=== PATIENT | female | born 1960 | race Caucasian/White ===

== ENCOUNTER 2020-11-23 08:49 | Day surgery (SDC) | payer MEDICARE, OTHER ==
[~2020-11-23] VITALS: Ht 160 cm; Wt 113.4 kg
[2020-11-23] VITALS (9 sets, daily range): BP systolic 110–133; BP diastolic 52–76
[~2020-11-23 08:49] MED LIST: CATAPRES0.2 MG ORAL; Cyclopentolate 2% Opth Sol ONE; NOVOLOG100 UNIT/4 IABDOM; Phenylephrine 2.5% Op 2ml Soln ONE; SYNTHROID75 MCG ORAL; Tetracaine 0.5% Opth 4ml Soln LEFT EYE SCH; Tetracaine 0.5% Opth 4ml Soln ONE; Vigamox Opth Soln 3ml ONE
[2020-11-23] MEDS: Vigamox Opth Soln 3ml LEFT EYE SCH ×3 (09:05→09:30)
[2020-11-23] MEDS: Cyclopentolate 2% Opth Sol LEFT EYE SCH ×3 (09:05→09:30)
[2020-11-23] MEDS: Phenylephrine 2.5% Op 2ml Soln LEFT EYE SCH ×3 (09:05→09:30)
[2020-11-23] MEDS ORDERED: Lidocaine 4% Amp 5ml ONE (09:48)
[2020-11-23] MEDS ORDERED: Lidocaine 2% MPF 5ml Vial INJ ONE (09:48)
[2020-11-23] MEDS ORDERED: Lidocaine 1% MPF 10mg/ml 5ml ONE ×2 (09:48→10:59)
[2020-11-23] MEDS ORDERED: EPINEPHrine 1mg/1ml Amp ONE (09:48)
[2020-11-23] MEDS ORDERED: Maxitrol Opth Oint 3.5gm ONE (09:49)
[2020-11-23] MEDS ORDERED: BSS 500ml btl ONE (09:49)
[2020-11-23] MEDS ORDERED: Tobradex Opth Susp 2.5ml ONE (09:49)
[2020-11-23] MEDS ORDERED: BSS 15ml BTL ONE (09:49)
[2020-11-23] MEDS ORDERED: Acetylcholine Injection (OR) ONE (09:50)
[2020-11-23] MEDS ORDERED: Povidone-Iodine 5% opth solution ONE (09:50)
[2020-11-23] MEDS ORDERED: Bupivacaine 0.75% 30ml vial INJ ONE (09:50)
[2020-11-23] MEDS ORDERED: Tetracaine 0.5% Opth 4ml Soln ONE (09:50)
[2020-11-23] MEDS ORDERED: Healon Duet Dual Pack ONE (09:51)
--- NOTE | 2020-11-23 10:57 | Anethesia Preoperative Eval ---
Anesthesia Pre-op PMH/ROS General Date of Evaluation: Nov 23, 2020 Time of Evaluation: 10:52 Anesthesiologist: Austin ASA Score: ASA 3 Mallampati Score Class I : Soft palate, uvula, fauces, pillars visible Class II: Soft palate, uvula, fauces visible Class III: Soft palate, base of uvula visible Class IV: Only hard plate visible Mallampati Classification: Class II Surgeon: Andrew Diagnosis: Cat OS Surgical Procedure: Cat EXt IOL OS Anesthesia History: none Family History: no anesthesia problems Allergies: Coded Allergies: CODEINE (Verified Allergy, Unknown, 12/19/10) IBUPROFEN (Verified Allergy, Unknown, 12/19/10) MORPHINE (Verified Allergy, Unknown, 12/19/10) Uncoded Allergies: PAPER TAPE (Allergy, Intermediate, RASH, 11/18/20) Medications: see eMAR Patient NPO?: Yes Past Medical History Cardiovascular: Reports: HTN Neurologic/Psychiatric: Reports: depression/anxiety Endocrine: Reports: DM Other: obesity - BNI 46 Morbid Anesthesia Pre-op Phys. Exam Physician Exam Last Vital Signs Date Time Temp Pulse Resp B/P (MAP) Pulse Ox O2 Delivery O2 Flow Rate FiO2 11/23/20 09:24 98.0 68 18 127/76 98 Room Air Constitutional: NAD Neurologic: CN 2-12 intact Cardiovascular: RRR Respiratory: CTA Gastrointestinal: S/NT/ND Airway Exam Mallampati Score: Class II MO: limited ROM: limited Teeth: missing, intact Anesthesia Pre-op A/P Labs Chemistry Test 11/23/20 09:20 Potassium Level 4.8 MMOL/L (3.5-5.1) Risk Assessment & Plan Assessment: ASA 3 Plan: TIVA Status Change Before Surgery: Aureliano Pro MD Nov 23, 2020 10:57
--- NOTE | 2020-11-23 10:58 | 48 Hour Post Anesthesia Eval ---
Post Anesthesia Evaluation Procedure: Cat EXt IOL OS Date of Evaluation: Nov 23, 2020 Time of Evaluation: 14:43 Blood Pressure Systolic: 117 0: 61 Pulse Rate: 57 Respiratory Rate: 18 Temperature (Fahrenheit): 98.4 O2 Sat by Pulse Oximetry: 98 Airway: patent Nausea: No Vomiting: No Pain Intensity: 1 Hydration Status: adequate Cardiopulmonary Status: Stable Mental Status/LOC: patient returned to baseline Follow-up Care/Observations: 0 Post-Anesthesia Complications: 0 Follow-up care needed: ready to discharge Aureliano Avila MD Nov 23, 2020 10:58
--- NOTE | 2020-11-23 10:58 | Immediate Post-Op Evaluation ---
Immediate Post-Op Evalulation Immediate Post-Op Evalulation Procedure: Cat EXt IOL OS Date of Evaluation: Nov 23, 2020 Time of Evaluation: 12:39 IV Fluids: 600 LR Blood Products: 0 Estimated Blood Loss: 1 Urinary Output: 0 Blood Pressure Systolic: 118 Blood Pressure Diastolic: 52 Pulse Rate: 62 Respiratory Rate: 16 O2 Sat by Pulse Oximetry: 100 Temperature (Fahrenheit): 98.1 Pain Score (1-10): 1 Nausea: No Vomiting: No Complications 0 Patient Status: awake, reacts, patent, none Hydration Status: adequate Aureliano Avila MD Nov 23, 2020 10:58
--- NOTE | 2020-11-23 10:58 | Pre-Procedure Note/Attestation ---
Pre-Procedure Note/Attestation Complete Prior to Procedure Planned Procedure: left Procedure Narrative: Phako and IOL implant Indications for Procedure Pre-Operative Diagnosis: left cataract Attestation I attest that I discussed the nature of the procedure; its benefits; risks and complications; and alternatives (and the risks and benefits of such alternatives), prior to the procedure, with the patient (or the patient's legal industrial sales representative). I attest that, if there was a reasonable possibility of needing a blood transfusion, the patient (or the patient's legal industrial sales representative) was given the [facility] standardized written summary, pursuant to the Silvio Raulito Blood Safety Act ([place] Health and Safety Code # 1645, as amended). I attest that I re-evaluated the patient just prior to the surgery and that there has been no change in the patient's H&P, except as documented below: Raphael Morales MD Nov 23, 2020 10:58
[2020-11-23] MEDS ORDERED: Sodium Chloride 10ml vial INJ ONE (10:59)
[2020-11-23] MEDS ORDERED: LORazepam Inj 2mg/ml 1ml IV PRN (11:00)
[2020-11-23] MEDS ORDERED: Metoclopramide 10mg/2ml Inj IVP PRN (11:00)
[2020-11-23] MEDS ORDERED: DiphenhydrAMINE 50mg/ml Inj IVP PRN (11:00)
[2020-11-23] MEDS ORDERED: LR 1000ml ONE (11:00)
[2020-11-23] MEDS ORDERED: fentaNYL 100 mcg/2 mL IV PRN (11:00)
[2020-11-23] MEDS ORDERED: Atropine Sulfate 0.4mg/ml inj IVP PRN (11:00)
[2020-11-23] MEDS ORDERED: LR 1000ml 1,000 ML IVLG SCH (11:00)
[2020-11-23] MEDS ORDERED: NS Irrig 1000ml ONE (11:00)
[2020-11-23] MEDS ORDERED: Labetalol 5mg/ml 20ml vial IV PRN (11:00)
[2020-11-23] MEDS ORDERED: Meperidine 25mg/1ml Inj (FOR RIGORS ONLY) IV PRN (11:00)
[2020-11-23] MEDS ORDERED: Midazolam 2mg/2ml Inj IVP PRN (11:00)
[2020-11-23] MEDS ORDERED: Sterile Water Irrig 1000ml IRRIG ONE (11:00)
[2020-11-23] MEDS ORDERED: Flumazenil 0.5mg/5ml Inj IV ONE (11:54)
--- NOTE | 2020-11-23 12:32 | Brief Operative Note ---
Immediate Post Operative Note Operative Note Pre-op Diagnosis: left cataract Procedure: left phako and IOL implant complex Post-op Diagnosis: same Post-op Diagnosis: same as pre-op Surgeon: Raphael Morales Preschool Teacher'S Assistant: none Additional Surgeons: none Anesthesiologist: Aureliano Avila Anesthesia: MAC Specimen: none Complications: none Condition: stable Fluids: NS TKO Estimated Blood Loss: none Drains: none Packing: none Implant(s) used?: Yes Raphael Morales MD Nov 23, 2020 12:32
--- NOTE | 2020-11-29 07:29 | Operative Note - Dictated ---
DATE OF OPERATION: 11/23/2020 PREOPERATIVE DIAGNOSIS: Degenerative mature cataract, left eye. POSTOPERATIVE DIAGNOSIS: Degenerative mature cataract, left eye. PROCEDURE: Left extracapsular cataract extraction by phacoemulsification and primary insertion of posterior chamber intraocular lens implant, complex, using Vision Blue. SURGEON: Raphael Morales M.D. ANESTHESIA: MAC. ANESTHESIOLOGIST: Aureliano Avila M.D. INDICATIONS: The best corrected vision is 20/400. FINDINGS: See indications, diagnoses. DESCRIPTION OF PROCEDURE: The patient received preoperatively topical antibiotics, dilating drops, tetracaine, and was brought into the operating room and given satisfactory sedation by the anesthesiologist. A total of 10 mL of mixture half and half Xylocaine 2% with epinephrine and Marcaine 0.75% were injected as modified Ross akinesia and peribulbar anesthesia (4 mL). The patient was then prepped and draped in the usual manner. A Brissa speculum was placed and a 3 mm wide incision was made at the lateral limbus just anterior to the arcades. The anterior chamber was penetrated at the 6 and 12 o'clock position and slowly decompressed. The anterior chamber was filled with air. This was followed by Vision Blue, which was left in place for about 20 seconds and irrigated out of the eye. A nonpreserved 1% Xylocaine was used to further enhance intraocular anesthesia. Under viscoelastic, the anterior chamber was penetrated through the vertical incision with a 3-mm wide keratome. A capsulorrhexis was done followed by hydrodissection. The nucleus was phacoemulsified with [employer] unit and OZIL technology. Cortical remnants were removed with the IA tip of the same unit. The intraocular lens was removed from its pack. The lens is a model SA60AT from [employer]. The power is 17.0 D. The serial number is [id number]. The lens was loaded onto the Douglas II delivery system, and injected into the capsular bag with the haptics dialed to the vertical meridian and the tap test confirming the adequate placement of the lens. The IA tip was then used to replace viscoelastic with balanced salt solution. The incisions were hydrated and were found to be watertight. Prior to that, Miochol was injected to reduce pupil size. Dexamethasone was injected into the inferior Tenon space, 1 mL. Vigamox drops and TobraDex ointment were applied. The eye was closed. The patch and shield were applied. The patient tolerated well the procedure and left the operating room in good condition. Final diagnoses and procedures are as above. Raphael Morales M.D. DR: SHAWN JOB#: [id number] CC:
== END 2020-11-23 13:45 | disposition home or self-care (01) ==
LOC: SUR 08:49
DX: H26.222 Cataract secondary to ocular disorders (degenerative) (inflammatory), left eye (principal); I10 Essential (primary) hypertension; Z88.6 Allergy status to analgesic agent; E11.9 Type 2 diabetes mellitus without complications; E66.01 Morbid (severe) obesity due to excess calories; F32.9 Major depressive disorder, single episode, unspecified; F41.9 Anxiety disorder, unspecified; Z68.41 Body mass index [BMI] 40.0-44.9, adult
CPT/HCPCS: 36415; 66984; 84132; 94003; J0171; J1100; J2250; J2704; J3370; J3490; J7120; U0004; V2632; 94150